=== PATIENT | male | born 1995 | race Hispanic/Latino ===

== ENCOUNTER 2022-05-22 23:35 | Emergency (ER) | payer OTHER ==
[~2022-05-22] VITALS: Ht 165.1 cm; Wt 147.9 kg
[2022-05-23 00:31] VITALS: BP 147/75
[2022-05-23] MEDS ORDERED: IBUP-2070 PO (00:44)
[2022-05-23] MEDS ORDERED: IBUPROFEN 800 MG TAB PO ONE (01:00)
== END 2022-05-23 01:06 | disposition home or self-care (01) ==
LOC: EDH 23:35
DX: L55.1 Sunburn of second degree (principal); Z79.1 Long term (current) use of non-steroidal anti-inflammatories (NSAID)